=== PATIENT | female | born 1995 | race Caucasian/White ===

== ENCOUNTER 2021-03-17 14:15 | Emergency (ER) | payer OTHER, SELFPAY ==
[2021-03-17 14:29] VITALS: BP 141/93; PULSE 94; RESP 16; TEMP 36.4; O2SAT 98
--- NOTE | 2021-03-17 15:32 | ED_ITS ---
HPI - Skin/Abscess/Foreign Bdy General Chief complaint: Skin/Abscess/Foreign Body Stated complaint: rash Source: patient and RN notes reviewed Limitations: no limitations History of Present Illness HPI narrative: The patient, previously mostly healthy, presents with skin eruption. Patient was treated through a week ago for contact dermatitis with a Medrol Dosepak ,by [facility]. Symptoms began after recent prolonged outdoor exposure. The classic pink, slightly raised and pimply eruption with occasional vesicles and linear component had improved; she believes she has occasionally small lesions recurring on her upper extremities, and still has pruritus. Discussed risk and benefit of steroid treatment , and patient requests second course which will be extended this time. Related Data Allergies Allergy/AdvReac Type Severity Reaction Status Date / Time No Known Allergies Allergy Verified 03/17/21 15:11 Review of Systems Review of Systems: General/Constitutional: No weight loss,fever Eyes: N0: Redness,discharge Ears/Nose/Throat: No: Epistaxis,ear discharge Respiratory: Denies: Hemoptysis Gastrointestinal: No Vomiting, Bleeding-rectal Skin: No Lumps, REPORTS eruption Neurologic: No Focal Weakness,Sz Hematologic: Denies: Petechiae/Purpura Psychiatric: No: Suicida ideationl All Other Systems: Reviewed and Negative PMFSH Comments At time of signature, agree with nursing past medical, surgical, social and family history. There is no relevant family history pertinent to the presenting complaint Exam Narrative: General Appearance: Well appearing, No distress Skin: Warm, Dry, maculopapular and occ papulovesicular eruption in various stages, pigmentation exclusively on exposed areas of trunk and extremities EYE: PERRLA, Conjunctiva clear Ears: External ear normal Nose: Normal nose Mouth/Throat: Normal appearing, Normal lips,Neck: Supple Respiratory: Airway patent, No respiratory distress Musculoskeletal: Full ROM Neurological: A&O x3, CN II-X intact Psychiatric: Normal mood, Normal affect Course Vital Signs Vital signs: Vital Signs Temperature 97.6 F 03/17/21 14:29 Pulse Rate 94 03/17/21 14:29 Respiratory Rate 16 03/17/21 14:29 Blood Pressure 141/93 H 03/17/21 14:29 Pulse Oximetry 98 03/17/21 14:29 Temperature 97.6 F 03/17/21 14:29 Pulse Rate 94 03/17/21 14:29 Respiratory Rate 16 03/17/21 14:29 Blood Pressure 141/93 H 03/17/21 14:29 Pulse Oximetry 98 03/17/21 14:29 Discharge Plan Discharge Clinical Impression: Contact dermatitis Qualifiers: Contact dermatitis type: unspecified Contact dermatitis trigger: unspecified trigger Qualified Code(s): L25.9 - Unspecified contact dermatitis, unspecified cause Patient Disposition: Home, Self-Care Condition: Stable Instructions: Contact Dermatitis (ED) Additional Instructions: Keep photo log of area Dosepak can be taken with food, down to only twice a day Prescriptions: New methylprednisolone [Methylpred DP] 4 mg tablets,dose pack See Rx Instructions .ROUTE .COMPLEX Qty: 2 RF: 0 Follow-up/Referrals: UNKNOWN,DOCTOR [Primary Care Provider] -
== END 2021-03-17 15:50 | disposition home or self-care (01) ==
PROVIDERS: Emergency Provider Emergency Medicine
DX: L25.9 Unspecified contact dermatitis, unspecified cause (principal)
CPT/HCPCS: 99203; G0463